=== PATIENT | female | born 1980 | race Caucasian/White ===

== ENCOUNTER 2018-02-06 11:42 | Emergency (ER) | END 2018-02-06 13:45 | disposition home or self-care (01) ==

== ENCOUNTER 2018-06-05 10:39 | Emergency (ER) | END 2018-06-05 13:07 | disposition home or self-care (01) ==

== ENCOUNTER 2018-09-17 11:05 | Emergency (ER) | END 2018-09-17 12:11 | disposition home or self-care (01) ==